=== PATIENT | male | born 1965 | race African-American/Black ===

== ENCOUNTER 2017-06-07 22:01 | Emergency (ER) | payer MEDICAID ==
[~2017-06-07] VITALS: Ht 175.3 cm; Wt 100.0 kg
[2017-06-08 01:20] VITALS: BP 144/91
== END 2017-06-08 01:30 | disposition home or self-care (01) ==
LOC: ER 22:01
DX: S13.4XXA Sprain of ligaments of cervical spine, initial encounter (principal); M79.641 Pain in right hand; M25.561 Pain in right knee; M25.562 Pain in left knee; R03.0 Elevated blood-pressure reading, without diagnosis of hypertension; R51 Headache; V49.49XA Driver injured in collision with other motor vehicles in traffic accident, initial encounter; Y93.89 Activity, other specified; Y92.488 Other paved roadways as the place of occurrence of the external cause
CPT/HCPCS: 99281

== ENCOUNTER 2017-07-23 22:56 | Emergency (ER) | payer MEDICAID ==
[~2017-07-23] VITALS: Ht 177.8 cm; Wt 105.0 kg
[2017-07-24] MEDS ORDERED: CYCLOBENZAPRINE 10MG TABLET PO ONE (06:30)
[2017-07-24] MEDS ORDERED: KETOROLAC 60MG/2ML VIAL IM ONE (06:30)
[2017-07-24] MEDS ORDERED: DEXAMETHASONE 10 MG/ML VIAL IM ONE (06:30)
[2017-07-24 06:40] VITALS: BP 128/67
== END 2017-07-24 06:45 | disposition home or self-care (01) ==
LOC: ER 22:56
DX: M54.5 Low back pain (principal); M62.838 Other muscle spasm; M25.512 Pain in left shoulder; E11.9 Type 2 diabetes mellitus without complications; V43.52XA Car driver injured in collision with other type car in traffic accident, initial encounter; Y93.89 Activity, other specified; Y99.8 Other external cause status; Y92.89 Other specified places as the place of occurrence of the external cause
CPT/HCPCS: 73030; 96372; 99284; J1885; J1100

== ENCOUNTER 2018-06-06 12:36 | Emergency (ER) | payer MEDICAID ==
[~2018-06-06] VITALS: Ht 175.3 cm; Wt 104.0 kg
[2018-06-06 13:03] VITALS: BP 170/104
== END 2018-06-06 16:22 | disposition left against medical advice (07) ==
LOC: ER 12:56
DX: Z53.21 Procedure and treatment not carried out due to patient leaving prior to being seen by health care provider (principal)
CPT/HCPCS: 93005

== ENCOUNTER 2018-11-26 13:49 | Emergency (ER) | payer MEDICAID, OTHER ==
[~2018-11-26] VITALS: Ht 175.3 cm; Wt 100.0 kg
[2018-11-26] MEDS ORDERED: KETOROLAC 30MG/ML VIAL IM ONE (19:30)
[2018-11-26 21:04] VITALS: BP 145/92
== END 2018-11-26 21:08 | disposition home or self-care (01) ==
LOC: ER 17:14
DX: R51 Headache (principal); B02.9 Zoster without complications; I10 Essential (primary) hypertension; E11.9 Type 2 diabetes mellitus without complications
CPT/HCPCS: 96372; 99283; J1885

== ENCOUNTER 2020-10-12 19:46 | Emergency (ER) | payer OTHER ==
[~2020-10-12] VITALS: Ht 175.3 cm; Wt 100.0 kg
[2020-10-12 20:36] VITALS: BP 141/95
[2020-10-12] MEDS ORDERED: TETRACAINE 0.5% OPHTH DROPS 4ML RIGHTEYE ONE (21:00)
== END 2020-10-12 22:01 | disposition home or self-care (01) ==
LOC: ER 20:06
DX: H53.8 Other visual disturbances (principal); E11.9 Type 2 diabetes mellitus without complications; I10 Essential (primary) hypertension; E78.00 Pure hypercholesterolemia, unspecified
CPT/HCPCS: 99284

== ENCOUNTER 2021-04-03 21:06 | Emergency (ER) | payer MEDICAID, OTHER ==
[~2021-04-03] VITALS: Ht 177.8 cm; Wt 100.0 kg
[2021-04-03] MEDS ORDERED: IBUPROFEN 600MG TABLET PO ONE (21:30)
[2021-04-03 23:27] VITALS: BP 159/94
[2021-04-03] MEDS ORDERED: BACITRACIN ZINC OINT UDPKT TOP ONE (23:30)
[2021-04-03] MEDS ORDERED: TETANUS, DIPHTHERIA, PERTUSSIS VAC/PF 0.5ML (>10YR OLD) IM ONE (23:30)
[2021-04-03] MEDS ORDERED: NAPR-681 MT (23:40)
== END 2021-04-04 00:10 | disposition home or self-care (01) ==
LOC: ER 21:06
DX: S93.402A Sprain of unspecified ligament of left ankle, initial encounter (principal); E11.9 Type 2 diabetes mellitus without complications; I10 Essential (primary) hypertension; W18.30XA Fall on same level, unspecified, initial encounter; Y93.89 Activity, other specified; Y92.89 Other specified places as the place of occurrence of the external cause; Y99.8 Other external cause status
CPT/HCPCS: 73590; 73610; 90471; 90715; 99284